=== PATIENT | female | born 1950 | race African-American/Black ===

== ENCOUNTER 2016-08-03 06:41 | Emergency (ER) | payer OTHER ==
[~2016-08-03] VITALS: Ht 165.1 cm; Wt 97.5 kg
[~2016-08-03 06:41] MED LIST: ASPIRIN EC81 M1 PO; BUDEPRION SR100 MG PO; CITALOPRAM10 MG PO; DICLOFENAC SODI75 M1 PO; FERROUS SULFAT325 M3 PO; FOLATE1 MG PO; HYDROCODONE BIT1 TA5 PO; K-DUR10 MEQ PO; LEVOTHYROXIN0.075 M1 PO; LEVOTHYROXINE0.1 M1 PO; METHOTREXATE2.5 M2 PO; MOTRIN600 M1 PO; NAPROSYN PO; ORETIC25 MG PO; OYSCO 500 + D 51 TAB PO; PRAVASTATIN20 M1 PO; PREMARIN0.625 M1 PO; PRILOSEC20 M2 PO; SYNTHROID0.088 MG PO
[2016-08-03 06:47] VITALS: BP 152/99
--- NOTE | 2016-08-03 06:57 | NUR ---
AMBULATED TO ER BED 2
--- NOTE | 2016-08-03 06:59 | NUR ---
PATIENT PRESENTS TO ED DUE TO PAIN ON LEFT HAND S/P SURGERY ON CASCADE LAST WEDNESDAY DUE TO CARPAL TUNNEL,NOTED SWELLING ON LEFT HAND . DENIES N/V/D; SKIN IS PINK/WARM/DRY; AAOX4 WITH EVEN AND STEADY GAIT; LUNGS CLEAR BL; HR EVEN AND REGULAR; PT DENIES ANY FEVER, CP, SOB, OR COUGH AT THIS TIME; PATIENT STATES PAIN OF 10/10 AT THIS TIME; PATIENT POSITIONED FOR COMFORT; HOB ELEVATED; BEDRAILS UP X2; BED DOWN. ER MD MADE AWARE OF PT STATUS.HX THYROID PROBLEM,HIGH CHOLESTEROL
[2016-08-03] MEDS ORDERED: KETOROLAC 60 MG/2 ML VIAL IM ONE (07:30)
--- NOTE | 2016-08-03 08:05 | NUR ---
PT AAO. PAIN SCALE OF 6/10 FROM 10. PT RQUESTED FOR ORANGE JUICE.NO ACUTE DISTRESS NOTED AT THID TIME. WILL CONTINUE TO MONITOR PT.
--- NOTE | 2016-08-03 08:24 | NUR ---
Patient discharged with v/s stable. Written and verbal after care instructions given and explained. Patient alert, oriented and verbalized understanding of instructions. Ambulatory with steady gait. All questions addressed prior to discharge. ID band removed. Patient advised to follow up with PMD. Rx of KEFLEX AND NORCO given. Patient educated on indication of medication including possible reaction and side effects. Opportunity to ask questions provided and answered.
[2016-08-03 08:26] VITALS: BP 144/71
== END 2016-08-03 08:24 | disposition home or self-care (01) ==
LOC: MED 06:41
DX: M25.531 Pain in right wrist (principal); M79.89 Other specified soft tissue disorders; F17.200 Nicotine dependence, unspecified, uncomplicated; Z79.82 Long term (current) use of aspirin; Z79.899 Other long term (current) drug therapy; Z90.710 Acquired absence of both cervix and uterus
CPT/HCPCS: 96372; 99283; J1885

== ENCOUNTER 2017-05-05 20:20 | Emergency (ER) | payer OTHER ==
[~2017-05-05] VITALS: Ht 165.1 cm; Wt 101.6 kg
[~2017-05-05 20:20] MED LIST changes: +ASPI81EC20 PO; -ASPIRIN EC81 M1 PO; -BUDEPRION SR100 MG PO; +CALC1TAB84 PO; +CITA10TA98 PO; -CITALOPRAM10 MG PO; -DICLOFENAC SODI75 M1 PO; +FERR325E14 PO; -FERROUS SULFAT325 M3 PO; -FOLATE1 MG PO; +FOLI1TAB19 PO; -HYDROCODONE BIT1 TA5 PO; +IBUP-2213 PO; -K-DUR10 MEQ PO; +LEVO0.083 PO; -LEVOTHYROXIN0.075 M1 PO; -LEVOTHYROXINE0.1 M1 PO; -METHOTREXATE2.5 M2 PO; -MOTRIN600 M1 PO; -NAPROSYN PO; +OMEP20TA56 PO; +ORE25 PO; -ORETIC25 MG PO; -OYSCO 500 + D 51 TAB PO; +POTA10TE30 PO; +PRAV20TA46 PO; -PRAVASTATIN20 M1 PO; +PRE.625 PO; -PREMARIN0.625 M1 PO; -PRILOSEC20 M2 PO; -SYNTHROID0.088 MG PO; +[UNRECOGNIZED DRUG - CODE] PO
[2017-05-05 20:42] VITALS: BP 133/84
[2017-05-05] MEDS ORDERED: ALEN70TA52 PO (20:46)
--- NOTE | 2017-05-05 21:21 | NUR ---
TO ER BED 4
--- NOTE | 2017-05-05 21:22 | NUR ---
67 Y/O F W/C/O L UPPER THIGH PAIN X TODAY, AND BILATERAL GROIN DISCOMFORT X 3 MTHS. DENIES ANY MED HX OF DVTM OR SOB . MED HX CHRONIC RHEUMAOTID ARTHITIS, HYPERLIPEDEMIA, AND HYPOTHYROIDISM. VSS, NO S/S OF DISTRESS NOETD AT THE MOMENT. VAMSHI MAYEN MADE AWARE.
[2017-05-05] MEDS ORDERED: NACL 0.9% 1,000 ML IV ONE (22:10)
[2017-05-05] MEDS ORDERED: LORazepam 2 MG/ML VIAL IVP ONE (22:10)
[2017-05-05] MEDS ORDERED: KETOROLAC 30 MG/ML VIAL IVP ONE (22:10)
--- NOTE | 2017-05-05 22:16 | NUR ---
MOVED TO ER BED 7
[2017-05-05 22:30] LABS: HEMOGLOBIN 13.5 g/dL (12.0-16.0); MEAN CORPUSCULAR HEMOGLOBIN 33 pg (27-31); MEAN CORPUSCULAR HGB CONC 34 g/dL (33-37); MEAN CORPUSCULAR VOLUME 96 fL (80-94)
[2017-05-05 22:34] LABS: HEMATOCRIT 39.9 % (36-48); PLATELET COUNT (AUTO) 229 K/uL (140-450); RED BLOOD CELL COUNT(AUTO) 4.14 MIL/uL (4.20-5.40); RED CELL DISTRIBUTION WIDTH 14.3 % (11.6-13.7); WHITE BLOOD COUNT (AUTO) 8.8 K/uL (4.8-10.8)
[2017-05-05 22:46] LABS: PROTHROMBIN TIME 9.6 secs (10.8-13.4)
[2017-05-05 22:47] LABS: ALBUMIN 3.7 g/dL (3.4-5.0); CREATININE 1.2 mg/dL (0.6-1.3)
--- NOTE | 2017-05-05 22:53 | NUR ---
pt asleep, vss. no other s/s of distress noted at the moment.
[2017-05-05 22:54] LABS: LYMPHOCYTES % (MANUAL) 19 % (20-46); MONOCYTES % (MANUAL) 12 % (5-12)
[2017-05-05 22:59] LABS: TOTAL BILIRUBIN 0.2 mg/dL (0.0-1.0)
[2017-05-05 23:47] VITALS: BP 133/76
--- NOTE | 2017-05-05 23:47 | NUR ---
Patient discharged with v/s stable. Written and verbal after care instructions given and explained. Patient alert, oriented and verbalized understanding of instructions. Ambulatory with steady gait. All questions addressed prior to discharge. ID band removed. Patient advised to follow up with PMD OR RETURN TO ER IF CONDITION WORSEN. Rx of ATIVAN, AND MOTRIN given. Patient educated on indication of medication including possible reaction and side effects. Opportunity to ask questions provided and answered.
== END 2017-05-05 23:47 | disposition home or self-care (01) ==
LOC: MED 20:20
DX: M62.838 Other muscle spasm (principal); R03.0 Elevated blood-pressure reading, without diagnosis of hypertension; Z79.899 Other long term (current) drug therapy
CPT/HCPCS: 36415; 80053; 85025; 85610; 85730; 96361; 96374; 96375; 99285; J1885; J2060; J7030